=== PATIENT | male | born 1960 | race Caucasian/White ===

== ENCOUNTER → 2018-01-20 | Outpatient (CLI) | payer OTHER | END | disposition home or self-care (01) | LOC: RESCLI 08:13 | DX: Z12.11 Encounter for screening for malignant neoplasm of colon (principal); E13.9 Other specified diabetes mellitus without complications; E03.9 Hypothyroidism, unspecified; R68.81 Early satiety; Z79.4 Long term (current) use of insulin; Z72.0 Tobacco use ==

== ENCOUNTER → 2018-01-23 | Outpatient (CLI) | payer OTHER ==
[2018-01-23 13:12] LABS: BILIRUBIN NEGATIVE (NEGATIVE); BLOOD NEGATIVE (NEGATIVE); CLARITY CLEAR (CLEAR); COLOR YELLOW (YELLOW); GLUCOSE 3+ (NEGATIVE); KETONE NEGATIVE (NEGATIVE); LEUKO ESTERASE NEGATIVE (NEGATIVE); NITRITE NEGATIVE (NEGATIVE); PH 5.5 (5.0-9.0); UROBILINOGEN 0.2 E.U./dl (0.2-1.0)
[2018-01-23 13:38] LABS: BUN 12 mg/dl (7-24); CHLORIDE 100 mmol/L (98-107); CREATININE 0.97 mg/dL (0.70-1.30); FREE T4 0.29 ng/dl (0.76-1.46); POTASSIUM 4.2 mmol/L (3.5-5.1); SODIUM 136 mmol/L (136-145)
[2018-01-23 13:40] LABS: BACTERIA TRACE; MUCOUS TRACE; RBC 16-20 rbc/hpf (0-2); WBC 0-2 wbc/hpf (0-5)
== END | disposition home or self-care (01) ==
LOC: LAB 12:43
PROVIDERS: Internal Medicine
DX: E11.65 Type 2 diabetes mellitus with hyperglycemia (principal); E03.9 Hypothyroidism, unspecified; E55.9 Vitamin D deficiency, unspecified

== ENCOUNTER → 2018-02-08 | Outpatient (CLI) | payer OTHER | END | disposition home or self-care (01) | LOC: US 03:01 | DX: R68.81 Early satiety (principal) ==